=== PATIENT | female | born 2000 | race African-American/Black ===

== ENCOUNTER 2023-01-11 18:45 | Emergency (ER) | payer MEDICAID, OTHER ==
[~2023-01-11] VITALS: Ht 175.3 cm; Wt 75.0 kg
[2023-01-11 22:00] VITALS: BP 115/77
[2023-01-11] MEDS ORDERED: ACETAMINOPHEN 325MG TABLET PO PRN (22:00)
[2023-01-11 23:24] LABS: BASOPHILS % 0.2 % (0.0-2.0); EOSINOPHILS % 0.2 % (0.0-5.0); HEMATOCRIT. 31.4 % (36.0-48.0); HEMOGLOBIN. 10.9 g/dL (12.0-16.0); LYMPHOCYTES % 12.8 % (20.0-50.0); MEAN PLATELET VOLUME 8.7 fl (7.4-10.4); MONOCYTES % 10.5 % (2.0-8.0); NEUTROPHILS % 76.3 % (40.0-76.0); PLATELET 274 x1000/uL (130-400); RED BLOOD CELL COUNT 3.53 mill/uL (4.2-5.4); RED CELL DISTRIBUTION WIDTH 12.4 % (11.6-14.6)
[2023-01-11 23:28] LABS: CHLORIDE 104 mEq/L (98-107)
[2023-01-11 23:56] LABS: CLARITY URINE CLEAR (CLEAR); COLOR URINE YELLOW (YELLOW); KETONES URINE NEGATIVE (NEGATIVE); LEUKOCYTE ESTERASE URINE 3+ (NEGATIVE); NITRITE URINE NEGATIVE (NEGATIVE); OCCULT BLOOD URINE NEGATIVE (NEGATIVE); PH URINE 7.5 (4.5-8.0); PROTEIN URINE NEGATIVE (NEGATIVE); SPECIFIC GRAVITY URINE 1.007 (1.005-1.030); UROBILINOGEN URINE 0.2 E.U./dL (0.2-1.0)
[2023-01-12] MEDS ORDERED: NITR100C PO (00:01)
[2023-01-12] MEDS ORDERED: TOPUD PO (00:01)
[2023-01-12 00:03] LABS: B-HCG QUANTITATIVE 9316 mIU/mL (<3)
== END 2023-01-12 00:27 | disposition home or self-care (01) ==
LOC: ER 18:45
DX: O23.43 Unspecified infection of urinary tract in pregnancy, third trimester (principal); N39.0 Urinary tract infection, site not specified; Z3A.28 28 weeks gestation of pregnancy
CPT/HCPCS: 36415; 76805; 80053; 81003; 81025; 84702; 85025; 86850; 86900; 99284